=== PATIENT | female | born 1995 | race African-American/Black ===

== ENCOUNTER 2022-06-17 20:30 | Observation (INO) ==
[2022-06-17] MEDS ORDERED: ZOFRAN INJ 4 MG VIAL ONE (20:43)
[2022-06-17] MEDS ORDERED: ZOFRAN INJ 4 MG VIAL IVP ONE (20:48)
[2022-06-17] MEDS ORDERED: NS 1,000 ML IV 1,000 ML ONE (20:48)
[2022-06-17] MEDS ORDERED: NS 1,000 ML IV 1,000 ML IV ONE (20:48)
--- NOTE | 2022-06-17 20:52 | DR.POSSPRE ---
HPI Time Seen Time Seen by Provider: 06/17/22 20:52 HPI Comment HPI Comment: Acccording to pt she had noticed some blood yesterday .she came to Er and left without being seen in ER .However patient was brought in by EMS after complained of vaginal bleeding and cramping .Pt has had no fever or chills Complaints Chief Complaint Doctors Comments: vaginal bleeding Reviewed Nurses Notes Reviewed: Yes Source History Provided: Patient Mode of Arrival Mode of Arrival: EMS Associated Signs and Symptoms Associated Signs and Symptoms: Vaginal Bleeding and Abdominal Pain PMH PMH Past Surgical History: Yes Surgical History: Family History Family Medical History: Diabetes Mellitus, Coronary Artery Disease and Hypertension Social History Do you use any recreational Drugs:: No ROS Review of Systems Constitutional: Weakness Eyes: No Symptoms Reported ENTM: No Symptoms Reported Respiratoy: No Symptoms Reported Cardiovascular: No Symptoms Reported Gastrointestinal/Abdominal: See HPI Genitourinary: See HPI Neurological: No Symptoms Reported Musculoskeletal: No Symptoms Reported Integumentary: No Symptoms Reported Hematologic/Lymphatic: No Symptoms Reported Endocrine: No Symptoms Reported PE Vital Signs Vitals: Temperature 98.2 F Pulse Rate 70 Respiratory Rate 18 Blood Pressure [Left Arm] 109/60 Blood Pressure 124/74 O2 Sat by Pulse Oximetry 98 General Limitations: No Limitations General Appearance: Alert, Anxious and In Distress Head Head Exam: Normal Inspection, Atraumatic and Normocephalic Eyes Eye exam: PERRL and EOMI ENT ENT Exam: Mucous Membranes Moist Neck Neck Exam: Normal Inspection and Full ROM Chest Chest Inspection: Normal Inspection and Symmetric Chest Wall Rise Respiratory Respiratory Exam: Normal Lung Sounds Bilat Respiratory Exam: Bilateral: Clear to Auscultation Cardiovascular Cardiovascular Exam: +S1 and +S2 Abdominal Exam Abdominal Exam: Soft and Tenderness Genitourinary Exam: OB: Other (vaginal bleeding ) Neurologic Neurological Exam: Alert Skin Skin Exam: Normal Color MDM Additional Information Obtained Additional Findings:: miscarriage ,vaginal bleeding ,hypotension COURSE Treatment Treatment: iv fluids ,labs ultram monitor ROR Labs Reviewed Laboratory Results Reviewed?: Yes Result Diagrams: 06/17/22 21:10 06/17/22 21:10 Laboratory: WBC 6.8 X10^3/uL (3.6-10.0) 06/17/22 21:10 RBC 3.78 X10^6/uL (3.5-5.4) 06/17/22 21:10 Hgb 10.7 g/dL (12.0-16.0) L 06/17/22 21:10 Hct 32.8 % (36.0-47.0) L 06/17/22 21:10 MCV 87.0 fL (80.0-100.0) 06/17/22 21:10 MCH 28.4 pg (27.0-34.0) 06/17/22 21:10 MCHC 32.7 g/dL (33.0-35.0) L 06/17/22 21:10 RDW 18.5 % (11.6-16.5) H 06/17/22 21:10 Plt Count 250 X10^3/uL (150.0-450.0) 06/17/22 21:10 Plt Count Comment Adequate (ADEQUATE) 06/17/22 21:10 MPV 9.3 fL (7.4-11.0) 06/17/22 21:10 Neut % (Auto) 31.9 % (42.0-75.0) L 06/17/22 21:10 Lymph % (Auto) 53.1 % (21.0-51.0) H 06/17/22 21:10 Piatt % (Auto) 10.9 % (0.0-13.0) 06/17/22 21:10 Eos % (Auto) 3.5 % (0.9-2.9) H 06/17/22 21:10 Baso % (Auto) 0.6 % (0.2-1.0) 06/17/22 21:10 Neut # (Auto) 2.2 x10^3/uL (2.2-4.8) 06/17/22 21:10 Lymph # (Auto) 3.6 X10^3/uL (1.3-2.9) H 06/17/22 21:10 Piatt # (Auto) 0.7 x10^3/uL (0.3-0.8) 06/17/22 21:10 Eos # (Auto) 0.2 x10^3/uL (0.0-0.2) 06/17/22 21:10 Baso # (Auto) 0.0 X10^3/uL (0.0-0.1) 06/17/22 21:10 Absolute Nucleated RBC 0.5 /100WBC 06/17/22 21:10 Total Counted 100 06/17/22 21:10 Neutrophils % (Manual) 31 % (39-76) L 06/17/22 21:10 Band Neutrophils % 0 % (0-10) 06/17/22 21:10 Lymphocytes % (Manual) 56 % (13-43) H 06/17/22 21:10 Monocytes % (Manual) 9 % (4-9) 06/17/22 21:10 Eosinophils % (Manual) 3 % (0-6) 06/17/22 21:10 Basophils % (Manual) 1 % (0-1) 06/17/22 21:10 Atypical Lymphocytes Few A 06/17/22 21:10 Plt Morphology Comment Normal (NORMAL) 06/17/22 21:10 RBC Morphology Abnormal (NORMAL) A 06/17/22 21:10 Hypochromasia Slight A 06/17/22 21:10 Anisocytosis Slight A 06/17/22 21:10 Sodium 142 mmol/L (136-145) 06/17/22 21:10 Corrected Sodium TNP 06/17/22 21:10 Potassium 3.7 mmol/L (3.5-5.1) 06/17/22 21:10 Chloride 108 mmol/L (98-107) H 06/17/22 21:10 Carbon Dioxide 26.7 mmol/L (21-32) 06/17/22 21:10 BUN 7 mg/dL (7-18) 06/17/22 21:10 Creatinine 0.97 mg/dL (0.55-1.02) 06/17/22 21:10 Est GFR (MDRD) Af Amer > 60 (>60) 06/17/22 21:10 Est GFR (MDRD) Non-Af > 60 (>60) 06/17/22 21:10 Glucose 110 mg/dL (65-99) H 06/17/22 21:10 Calcium 8.1 mg/dL (8.5-10.1) L 06/17/22 21:10 Corrected Calcium 8.9 mg/dL (8.5-10.1) 06/17/22 21:10 Total Bilirubin 0.10 mg/dL (0.2-1.0) L 06/17/22 21:10 AST 11 Units/L (15-37) L 06/17/22 21:10 ALT 9 Units/L (12-78) L 06/17/22 21:10 Alkaline Phosphatase 81 Units/L (46-116) 06/17/22 21:10 Total Protein 6.5 g/dL (6.4-8.2) 06/17/22 21:10 Albumin 3.0 g/dL (3.4-5.0) L 06/17/22 21:10 Globulin 3.5 g/dL (2.5-4.5) 06/17/22 21:10 Albumin/Globulin Ratio 0.9 Ratio (1.1-2.1) L 06/17/22 21:10 HCG, Quant 1687 mIU/mL (0-6) H 06/17/22 21:10 Opioid Opioid Risk Tool Age (Rocael box if 16-45): Yes History of Preadolescent Sexual Abuse: No Total: 1 Total Score Risk Category: Low Risk Copyright: Girma HAN predicting aberrant behaviors Discharge Plan Diagnosis Discharge Problem: Miscarriage, Abnormal vaginal bleeding, Abdominal pain, Anemia Discharge Plan Patient Disposition: 09 ADMITTED INPATIENT Condition: Stable Health Concerns: Post Hospitalization: new medications and changes needed to prevent readmission or further decline. Pt educated and given instructions on all concerns. Plan of Treatment: Continue with present treatment and follow up plan. Pt is to keep follow up appointment as instructed and take medications as ordered. Orders to Discharge Patient Discharge Orders: Transfer (Routine); Ordered 06/18/22 Ordered By: Francisco Aldana Follow ups/Referrals Follow ups/Referrals: HEIDI BISHOP [Primary Care Provider] - 3 days Instructions Stand Alone Forms: [facility], Patient Portal, Social Distancing ADDITIONAL NOTES Additional Notes Additional Notes: Pt cont to experience pain .spoke with Dr Daly .Agreed to accept patient
[2022-06-17 21:18] VITALS: BMI 38.0
[2022-06-17 21:33] LABS: EOSINOPHILS # (AUTO) 0.2 x10^3/uL (0.0-0.2); MEAN CORPUSCULAR HEMOGLOBIN 28.4 pg (27.0-34.0); MEAN PLATELET VOLUME 9.3 fL (7.4-11.0)
[2022-06-17 21:35] LABS: BASOPHILS % (AUTO) 0.6 % (0.2-1.0); EOSINOPHILS % (AUTO) 3.5 % (0.9-2.9); HEMATOCRIT 32.8 % (36.0-47.0); HEMOGLOBIN 10.7 g/dL (12.0-16.0); LYMPHOCYTES # (AUTO) 3.6 X10^3/uL (1.3-2.9); LYMPHOCYTES % (AUTO) 53.1 % (21.0-51.0); MEAN CORPUSCULAR HGB CONC 32.7 g/dL (33.0-35.0); MONOCYTES # (AUTO) 0.7 x10^3/uL (0.3-0.8); MONOCYTES % (AUTO) 10.9 % (0.0-13.0); NEUTROPHILS # (AUTO) 2.2 x10^3/uL (2.2-4.8); NEUTROPHILS % (AUTO) 31.9 % (42.0-75.0); RED BLOOD COUNT 3.78 X10^6/uL (3.5-5.4); RED CELL DISTRIBUTION WIDTH 18.5 % (11.6-16.5); WHITE BLOOD COUNT 6.8 X10^3/uL (3.6-10.0)
[2022-06-17] MEDS ORDERED: ULTRAM PO ONE (21:35)
[2022-06-17 21:36] LABS: ALANINE AMINOTRANSFERASE 9 Units/L (12-78); ALKALINE PHOSPHATASE 81 Units/L (46-116); ASPARTATE AMINO TRANSFERASE 11 Units/L (15-37); BLOOD UREA NITROGEN 7 mg/dL (7-18); CALCIUM 8.1 mg/dL (8.5-10.1); CARBON DIOXIDE 26.7 mmol/L (21-32); CHLORIDE 108 mmol/L (98-107); COR CA(FOR HYPOALB) 8.9 mg/dL (8.5-10.1); CREATININE 0.97 mg/dL (0.55-1.02); SODIUM 142 mmol/L (136-145); TOTAL PROTEIN 6.5 g/dL (6.4-8.2); eGFR NON BLACK RACES > 60 (>60)
[2022-06-17] MEDS ORDERED: ULTRAM ONE (21:37)
[2022-06-17 21:54] LABS: BAND NEUTROPHILS % 0 % (0-10); BASOPHILS % (MANUAL) 1 % (0-1); PLATELET MORPHOLOGY COMMENT NORMAL (NORMAL)
[2022-06-17 21:55] LABS: ANISOCYTOSIS SLIGHT; HYPOCHROMASIA SLIGHT
[2022-06-17 21:57] LABS: HCG,QUANTITATIVE 1687 mIU/mL (0-6)
[2022-06-18] MEDS: STADOL INJ IVP PRN ×3 (00:07→09:17)
[2022-06-18] MEDS ORDERED: STADOL INJ IVP PRN (00:26)
[2022-06-18] MEDS: NS 1,000 ML IV 1,000 ML IV SCH ×2 (01:05→09:00)
[2022-06-18] MEDS ORDERED: NS 1,000 ML IV 1,000 ML ONE (01:09)
[2022-06-18] MEDS ORDERED: STADOL INJ ONE ×2 (03:27→09:09)
[2022-06-18 05:25] LABS: RED CELL DISTRIBUTION WIDTH 17.7 % (11.6-16.5)
[2022-06-18 05:29] LABS: BASOPHILS % (AUTO) 0.2 % (0.2-1.0); HEMOGLOBIN 7.7 g/dL (12.0-16.0); LYMPHOCYTES # (AUTO) 1.6 X10^3/uL (1.3-2.9); LYMPHOCYTES % (AUTO) 16.4 % (21.0-51.0); MEAN CORPUSCULAR HEMOGLOBIN 28.4 pg (27.0-34.0); MEAN CORPUSCULAR HGB CONC 33.7 g/dL (33.0-35.0); MEAN CORPUSCULAR VOLUME 84.5 fL (80.0-100.0); MEAN PLATELET VOLUME 8.7 fL (7.4-11.0); MONOCYTES # (AUTO) 0.3 x10^3/uL (0.3-0.8); MONOCYTES % (AUTO) 2.9 % (0.0-13.0); NEUTROPHILS # (AUTO) 7.9 x10^3/uL (2.2-4.8); NEUTROPHILS % (AUTO) 80.5 % (42.0-75.0); RED BLOOD COUNT 2.72 X10^6/uL (3.5-5.4); WHITE BLOOD COUNT 9.8 X10^3/uL (3.6-10.0)
[2022-06-18 05:41] LABS: ALANINE AMINOTRANSFERASE 7 Units/L (12-78); ALBUMIN 2.6 g/dL (3.4-5.0); ALKALINE PHOSPHATASE 66 Units/L (46-116); ASPARTATE AMINO TRANSFERASE 11 Units/L (15-37); BLOOD UREA NITROGEN 9 mg/dL (7-18); CALCIUM 7.8 mg/dL (8.5-10.1); CARBON DIOXIDE 23.3 mmol/L (21-32); CHLORIDE 108 mmol/L (98-107); COR CA(FOR HYPOALB) 8.9 mg/dL (8.5-10.1); COR NA(FOR HYPERGLY) 141 mmol/L (136-145); CREATININE 0.88 mg/dL (0.55-1.02); SODIUM 140 mmol/L (136-145); TOTAL PROTEIN 5.6 g/dL (6.4-8.2); eGFR NON BLACK RACES > 60 (>60)
--- NOTE | 2022-06-18 12:54 | DR.H&PGYN ---
H&P OBSTERICS/GYNECOLOGY Allergies Allergies Allergy/AdvReac Type Severity Reaction Status Date / Time No Known Drug Allergies Allergy Verified 05/19/21 03:00 History of Present Illness History of Present Illness: bleeding for 3 days in a first trimester Review of Systems Constitutional: No Symptoms Reported ENT: No Symptoms Reported Respiratory: No Symptoms Reported Cardiovascular: No Symptoms Reported Gastrointestinal: No Symptoms Reported Genitourinary: No Symptoms Reported Musculoskeletal: No Symptoms Reported Skin: No Symptoms Reported Neurological: No Symptoms Reported Obsterical History Para: 2 Past Medical History Past Gynecological History: None Past Surgical History Past Obstetrical/Gynecological Surgeries: section Surgical History: No History Family History Significant Family History: No pertinent family hx Social History Alcohol Use: None Drug Use: None Medications Active Medications Butorphanol Tartrate (Butorphanol Tartrate 1 Mg/1 Ml Inj Vial) 1 mg IVP Q3H PRN PRN Reason: PAIN MILD Last Admin: 06/18/22 09:17 Dose: 1 mg Sodium Chloride (Ns 1,000 Ml Iv) 1,000 mls @ 125 mls/hr IV Q8H FRANCIA Last Admin: 06/18/22 01:05 Dose: 125 mls/hr Physical Exam Temperature: 98.4 F Blood Pressure: 121/67 Respiratory Rate: 16 Pulse Rate: 90 O2 Sat by Pulse Oximetry: 100 Oriented: Normal Eyes: Normal Ear: Normal Nose: Normal Throat: Normal Respiratory: Normal Cardiovascular: Normal : Normal Skin: Normal Musculoskeletal: Normal Psychiatric: Normal Affect: Anxious Plan Plan: U/S initial read was empty uterus. Plan to now d/c and f/u this week Review H&P Reviewed: Yes Patient was examined?: Yes
[2022-06-18 14:56] VITALS: BP 114/68
--- NOTE | 2022-06-18 15:25 | US ---
HISTORYBLEEDING, MISCARRIAGESTUDYOBSTETRICAL TRANSVAGINALCOMPARISONTECHNIQUEMultiple chavez scale and color flow Doppler images of the pelvis were obtained.FINDINGSThis measures 11.9 x 5.7 x 5.8 centimeter. There is a hypoechoic irregularly-shaped fluid collection in the endometrial cavity which measures 2.6 x 2.3 x 1.5 centimeter. There is no yolk sac or pole internally. The mean sac diameter would indicate a gestational age of 8.2 weeks and yolk sac and pole should definitely be visible at this time. There is a small amount of fluid in the cul-de-sac. Right ovary has normal echotexture and blood flow and measures 1.3 x 3.5 x 1.9 centimeters. The left ovary also has normal echotexture and blood flow and measures 2.9 x 1.2 x 2.4 centimeters.IMPRESSIONThere is a fluid collection in the endometrial canal which could be an empty gestational sac. Question missed .Electronically signed by: Renato Norman (Jun 18, 2022 15:24:29)
== END 2022-06-18 14:45 | disposition home or self-care (01) ==
LOC: ICU 20:30 → ER 20:30 → ICU 06-18 00:52
PROVIDERS: ADMIT Obstetrics & Gynecology; ATTEND Obstetrics & Gynecology
DX: O02.1 Missed abortion; R10.84 Generalized abdominal pain; Z3A.08 8 weeks gestation of pregnancy